=== PATIENT | female | born 1970 | race Caucasian/White ===

== ENCOUNTER 2021-01-20 22:06 | Emergency (ER) | payer BC, SELFPAY ==
[~2021-01-20] VITALS: Ht 172.7 cm; Wt 93.0 kg
[~2021-01-20 22:06] MED LIST: DULO60CA41 PO; INSU100V; INSU100V9; LEVO25TA2 PO; LIP80 PO; LISI10TA29
--- NOTE | 2021-01-20 22:06 | NUR ---
Patient to ER bed 3 to gown for evaluation. Side rails up.
--- NOTE | 2021-01-20 22:25 | NUR ---
# 20 gauge angiocath placed to R FOREARM. Use of asceptic technique. Opsite placed over site. Blood return noted. Blood for lab drawn from site. Flushed with 10 cc of normal saline. No evidence of infiltration noted. Patient tolerated well.
--- NOTE | 2021-01-20 22:29 | NUR ---
ER Dr. RAYA at bedside examining patient.
[2021-01-20] MEDS ORDERED: NACL 0.9% 1,000 ML IV ONE ×3 (22:30→23:45)
--- NOTE | 2021-01-20 22:30 | NUR ---
PT BIB MEDIC FROM HOME FOR DIZZYNESS AND A SYNCOPE. PT WAS FOUND BY ON FLOOR, AND GAVE 2 GLUCAGON THINKING IT WAS A [facility] EMERGENCY. PT HAS BEEN OFF OFF DILAUDID SINCE 01/15/21 AND HAS BEEN GOING THROUGH WITHDRAWAL. PT STATES SHE TOOK 30MG FLEXIRIL COMPARED TO HER USUAL 10MG. PT IS A&OX4, AND HAS NO PAIN. PT FEELS WEAK AND TIRED
[2021-01-20 22:32] VITALS: BP_SYST 83
--- NOTE | 2021-01-20 22:50 | NUR ---
PT UNABLE TO SIT OR STAND FOR THE ORTHOSTATIC BP.
[2021-01-20 22:52] LABS: HEMATOCRIT 35.8 % (36-48); HEMOGLOBIN 11.1 g/dL (12.0-16.0); MEAN CORPUSCULAR HEMOGLOBIN 22 pg (27-31); MEAN CORPUSCULAR HGB CONC 31 % (32-36); MEAN CORPUSCULAR VOLUME 72 fL (79.0-98.0); PLATELET COUNT (AUTO) 604 K/uL (130-430); RED BLOOD CELL COUNT(AUTO) 4.97 MIL/uL (4.2-6.2); RED CELL DISTRIBUTION WIDTH 17.9 % (9.0-15.0); WHITE BLOOD COUNT (AUTO) 24.3 K/uL (4.8-10.8)
[2021-01-20 23:08] LABS: ANION GAP 12 (5-15); CALCIUM 9.1 mg/dL (8.4-11.0); CHLORIDE 99 mmol/L (98-107); CREATININE 1.75 mg/dL (0.55-1.30); GLUCOSE 295 mg/dL (70-99); SODIUM SERUM 136 mmol/L (136-145); UREA NITROGEN, BLOOD 34 mg/dL (8-21)
[2021-01-20 23:14] LABS: ALANINE AMINOTRANSFERASE 15 U/L (12-78); ASPARTATE AMINOTRANSFERASE 12 U/L (10-37); TOTAL BILIRUBIN 0.5 mg/dL (0.0-1.0)
[2021-01-20 23:16] LABS: ALCOHOL, BLOOD < 3 mg/dL (<10); GFR AFRICAN AMERICAN 40 mL/min (>90)
[2021-01-20 23:19] LABS: POTASSIUM 2.9 mmol/L (3.5-5.1)
--- NOTE | 2021-01-20 23:19 | NUR ---
CRITICAL POTASSIUM- 2.9 DR RAYA INFORMED
[2021-01-20 23:24] LABS: BAND % (MANUAL) 2 % (0-6); EOSINOPHILS % (MANUAL) 2 % (0-7); LYMPHOCYTES % (MANUAL) 16 % (20-46); MONOCYTES % (MANUAL) 0 % (0-11)
[2021-01-20 23:25] LABS: BASOPHILS % (MANUAL) 0 % (0-2)
[2021-01-20] MEDS ORDERED: KCL 40 mEq in 100 mL (PREMIX) 100 ML IV ONE (23:30)
[2021-01-20] MEDS ORDERED: KCL 20 mEq in 100 mL (PREMIX) 100 ML IV ONE (23:31)
[2021-01-21] MEDS ORDERED: POTASSIUM CHLORIDE 20 MEQ TAB.PRT.SR PO ONE (00:30)
--- NOTE | 2021-01-21 00:40 | NUR ---
DIPatient given written and verbal discharge instructions and verbalizes understanding. ER MD discussed with patient the results and treatment provided. Patient in stable condition. ID arm band removed. IV catheter removed intact and dressing applied, no active bleeding. Patient educated on pain management and to follow up with PMD. Pain Scale 0/10. Opportunity for questions provided and answered. Medication side effect fact sheet provided.
--- NOTE | 2021-01-21 00:44 | NUR ---
PT GIVEN PO K DUR AFTER PT DECIDED TO LEAVE INSTEAD, PTs IV POTASSIUM DISCONTINUED.
[2021-01-21 00:47] VITALS: BP_SYST 110
== END 2021-01-21 00:44 | disposition home or self-care (01) ==
LOC: SED 22:06
DX: T48.1X1A Poisoning by skeletal muscle relaxants [neuromuscular blocking agents], accidental (unintentional), initial encounter (principal); T42.6X1A Poisoning by other antiepileptic and sedative-hypnotic drugs, accidental (unintentional), initial encounter; E11.65 Type 2 diabetes mellitus with hyperglycemia; D72.829 Elevated white blood cell count, unspecified; E87.6 Hypokalemia; I10 Essential (primary) hypertension; Z79.4 Long term (current) use of insulin; Z79.899 Other long term (current) drug therapy; Z88.8 Allergy status to other drugs, medicaments and biological substances; Z20.822 Contact with and (suspected) exposure to COVID-19; Y92.89 Other specified places as the place of occurrence of the external cause
CPT/HCPCS: 36415; 70450; 76376; 80053; 82962; 84484; 85007; 85027; 85379; 87426; 93005; 96361; 96365; 99285; G0482; J3480; J7030